=== PATIENT | male | born 1975 | race Two or more races ===

== ENCOUNTER 2024-09-21 23:13 | Emergency (ER) | payer OTHER ==
[~2024-09-21] VITALS: Ht 170.2 cm; Wt 93.4 kg
[2024-09-22] MEDS ORDERED: LEVO-T88 MCG PO (00:45)
== END 2024-09-22 | disposition left against medical advice (07) ==
LOC: ER 23:15
DX: Z53.21 Procedure and treatment not carried out due to patient leaving prior to being seen by health care provider (principal)

== ENCOUNTER 2024-09-23 04:20 | Emergency (ER) | payer OTHER ==
[~2024-09-23] VITALS: Ht 170.2 cm; Wt 95.7 kg
[~2024-09-23 04:20] MED LIST: LEVO-T88 MCG PO
== END 2024-09-23 06:26 | disposition home or self-care (01) ==
LOC: ER 04:20
DX: R00.2 Palpitations (principal)